=== PATIENT | female | born 1985 | race Caucasian/White ===

== ENCOUNTER 2017-08-26 13:38 | Emergency (ER) | payer OTHER ==
--- NOTE | 2017-08-26 13:44 | ED Physician Documentation ---
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 She does have a history of migraines but she feels this is worse. She feels she is "trying to get the flu" . She does note sinus pressure that started this week worse this am. She has had headache and nausea. States her headaches are usually "not this bad" she has tried usually aides from [facility] with no relief. She denies any vomiting. No head injury) Last known Well Code/Unknown Code: Unknown - ROS CONST: fever EYES/ENT: problems with vision, nasal congestion CVS/RESP: denies: cough GI/: denies: vomiting, nausea MS/SKIN/LYMPH: denies: rash NEURO/PSYCH: headache - PAST HX Past History: other (migraines ) Surgeries/Procedures: other Immunizations: UTD Allergies/Adverse Reactions: Allergies Allergy/AdvReac Type Severity Reaction Status Date / Time Penicillins Allergy Intermediate Rash Verified 08/26/17 13:50 - SOCIAL HX Smoking History: non-smoker Alcohol Use: none Drug Use: none - FAMILY HX Family History: No - REVIEWED ASSESSMENTS Nursing Assessment Reviewed: Yes Vitals Reviewed: Yes Progress - Progress Progress: 1415: continues to have headache rates "high" she is opening her eyes. Nausea is improved. DG 1415: Offered Tamiflu due to exposure and symptoms she did refuse this medication DG General Adult Physical Exam - PHYSICAL EXAM GENERAL APPEARANCE: no distress EENT: eye inspection normal, MESERET, TM's nml, other (sinus pain and pressure frontal ) NECK: normal inspection RESPIRATORY: no resp distress, chest non-tender, breath sounds normal CVS: reg rate & rhythm, heart sounds normal, equal pulses, no murmur ABDOMEN: soft, normal bowel sounds SKIN: warm/dry, normal color EXTREMITIES: non-tender, normal range of motion, no evidence of injury, no edema NEURO: oriented X3, CN's nml as tested, motor nml, sensation nml, mood/affect nml Discharge Clincal Impression: Sinusitis Qualifiers: Sinusitis location: frontal Chronicity: acute Recurrence: non-recurrent Qualified Code(s): J01.10 - Acute frontal sinusitis, unspecified Referrals: Keiko Martínez MD [Primary Care Provider] - 2 Days Comments: Increase fluids OTC meds for aide in Migraine Cefdinir 300 mg BID x 10 days Medrol Dose pack as directed Rest Return to PCP in 2 days if no resolution Return to ER for any concerns Condition: Stable Disposition: 01 HOME, SELF-CARE Decision to Admit: NO Date of Decison to Admit: 08/26/17 Decision Time: 15:13
[2017-08-26] MEDS ORDERED: 0.9 % SODIUM CHLORIDE 1,000 ML IV ONE ×2 (13:56→13:59)
[2017-08-26] MEDS ORDERED: KETOROLAC TROMETHAMINE 30 MG/1ML VIAL IVP ONE (13:57)
[2017-08-26] MEDS ORDERED: DEXAMETHASONE SOD PHOS 4 MG/ML VIAL IVP ONE (13:57)
[2017-08-26] MEDS ORDERED: ONDANSETRON HCL/PF 4 MG/ 2ML VIAL IVP ONE (13:57)
[2017-08-26] MEDS ORDERED: KETOROLAC TROMETHAMINE 30 MG/1ML VIAL ONE (13:58)
[2017-08-26] MEDS ORDERED: ONDANSETRON HCL/PF 4 MG/ 2ML VIAL ONE (13:58)
[2017-08-26] MEDS ORDERED: DEXAMETHASONE SOD PHOS 4 MG/ML VIAL ONE (13:59)
[2017-08-26] MEDS ORDERED: fentaNYL CITRATE/PF 100 MCG/ 2ML AMP IVP ONE (14:36)
[2017-08-26] MEDS ORDERED: fentaNYL CITRATE/PF 100 MCG/ 2ML AMP ONE (14:37)
[2017-08-26 15:08] VITALS: BP 122/74
== END 2017-08-26 15:07 | disposition home or self-care (01) ==
LOC: ED 13:38
DX: J01.10 Acute frontal sinusitis, unspecified (principal); Z20.828 Contact with and (suspected) exposure to other viral communicable diseases
CPT/HCPCS: J1100; J1885; J2405; J3010; J7030; 96365; 96375; 99283; S1016

== ENCOUNTER 2018-07-26 21:12 | Emergency (ER) | payer OTHER ==
[2018-07-26] MEDS ORDERED: ACETAMINOPHEN ORAL SOLUTION 325 MG/10.15 ML CUP PO ONE (21:31)
[2018-07-26] MEDS ORDERED: LIDOCAINE HCL 2% VISC. ORAL 300MG/15ML UDC PO ONE (21:31)
--- NOTE | 2018-07-26 21:36 | ED Physician Documentation ---
Sore Throat/Dental Pain - HPI Stated Complaint: dental pain Chief Complaint: Dental Pain Additional Information: Patient presents to ED with a 5 day history of worsening dental pain. She states a left lower tooth broke about 5 days ago and she went to her PCP. Patient was prescribed Bactrim. Yesterday she was seen by a dentist. Her Bactrim was changed to Clindamycin (she has taken 2 doses) and Tylenol 3 was added. Tonight the pain has increased. She has an appointment with the Dentist on August 07 to have all of her teeth extracted. Onset: days ago (5) Context: Fractured Tooth Associated Symptoms: denies: fever, chills Worsened By: heat, cold, other (air) - ROS CONST: no problems CVS/RESP: none GI/: denies: nausea, vomiting MS/SKIN/LYMPH: denies: muscle aches NEURO/PSYCH: denies: none - PAST HX Past History: gum disease Other History: none Allergies/Adverse Reactions: Allergies Allergy/AdvReac Type Severity Reaction Status Date / Time Penicillins Allergy Intermediate Rash Verified 07/26/18 21:29 Home Medications: Ambulatory Orders Medication Instructions Recorded Norethindrone-Ethinyl Estrad 1 tab PO DIRECTED 07/26/18 [Pirmella 1-35-28 Tablet] Sertraline HCl [Zoloft] 50 mg PO D 07/26/18 Tramadol HCl [Ultram] 50 mg PO TID PRN #15 tablet 07/26/18 - SOCIAL HX Smoking History: non-smoker Alcohol Use: none Drug Use: none - FAMILY HX Family History: No - VITAL SIGNS Vital Signs: Vital Signs Temp Pulse Resp BP Pulse Ox 122/74 08/26/17 15:07 - REVIEWED ASSESSMENTS Nursing Assessment Reviewed: Yes Vitals Reviewed: Yes ED Results Lab/Radiology - Orders Orders: ED Orders Category Date Time Status Acetaminophen [Tylenol] Med 07/26/18 21:31 Discontinued 325 mg PO NOW ONE Lidocaine 2%Visc 15ml [Xylocaine] Med 07/26/18 21:31 Discontinued 15 mg PO NOW ONE Dental Pain Physical Exam - EXAM General Appearance: no acute distress, alert Head/Neck: mandibular swelling (L). No: cervical lymphadenopathy Eyes: PERRL Mouth/Throat: gum swelling around teeth, widespread dental decay. No: drooling Ear/Nose: nml inspection Respiratory: no resp. distress, breath sounds nml CVS: reg. rate & rhythm, heart sounds nml Abdomen: soft Extremities: non-tender Skin: warm/dry Neuro/Psych: none Discharge Clincal Impression: Dental caries Prescriptions: Tramadol HCl [Ultram] 50 mg PO TID PRN #15 tablet PRN Reason: dental pain Referrals: Alley Barrow, [employer] [Primary Care Provider] - 2 Days Additional Instructions: 1.Tylenol and/or Ibuprofen as needed for pain. You may take these medications together at the same time for better pain control. 2.Rinse your mouth with 1 tsp salt/1 tsp baking soda in 1 cup warm water after every meal and snacks. 3.Follow up with a dentist as soon as possible 4.Follow up with PCP within 3 days. 5.Return to the ED with fever >101.0, increased facial swelling, difficulty swallowing or shortness of breath, or any new or worsening symptoms Decision to Admit: NO Date of Decison to Admit: 07/26/18 Decision Time: 21:54
[2018-07-26] MEDS ORDERED: traMADol HCL 50 MG TABLET PO ONE (21:44)
[2018-07-26 22:25] VITALS: BP 149/101
== END 2018-07-26 22:02 ==
LOC: ED 21:12
DX: K02.9 Dental caries, unspecified (principal)
CPT/HCPCS: 99282; 99283; A9270